=== PATIENT | male | born 1995 | race Caucasian/White ===

== ENCOUNTER 2020-06-13 15:14 | Emergency (ER) | payer SELFPAY ==
--- NOTE | 2020-06-13 16:28 | ER Document Report ---
ED Medical Screen (RME) - General Chief Complaint: Possible Overdose Stated Complaint: POSSIBLE OVERDOSE Time Seen by Provider: 06/13/20 16:26 Mode of Arrival: Medic Information source: Patient Notes: 25-year-old male presented to ED for complaint of possible overdose of oxycodone. He states he is not prescribed oxycodone and took 60 mg of oxycodone. He was on his way to [place] for rehab when he told the people to stop and bring him to the emergency room because he was feeling very lightheaded with his mouth tingling and feeling like he was going to pass out. He states he does frequently abuse heroin marijuana and mass. He states he is always binging on something. He states he was taken Suboxone but ran out of that 3 days ago so he took the oxycodone so that he would not withdrawal from the Suboxone. He states he has never taken 60 mg at one time before. He states he does smoke a pack and 1/2 to 2 packs/day he is a heavy drinker. He states he is always either binging on alcohol or drugs. I did notify the charge nurse and she stated that the EMS told her his vital signs were stable and that he had only taken 1 more oxycodone than he usually takes. Patient told me he does not usually take oxycodone. I have greeted and performed a rapid initial assessment of this patient. A comprehensive ED assessment and evaluation of the patient, analysis of test results and completion of medical decision making process will be conducted by an additional ED providers. - Related Data Allergies/Adverse Reactions: No Known Allergies Allergy (Unverified 06/13/20 16:17) Physical Exam - Vital signs Vitals: Temp Pulse Resp BP Pulse Ox 98.4 F 103 H 20 135/87 H 99 06/13/20 15:22 06/13/20 15:22 06/13/20 15:22 06/13/20 15:22 06/13/20 15:22 Course - Vital Signs Vital signs: Temp Pulse Resp BP Pulse Ox 98.4 F 103 H 20 135/87 H 99 06/13/20 15:22 06/13/20 15:22 06/13/20 15:22 06/13/20 15:22 06/13/20 15:22
[2020-06-13] MEDS ORDERED: NICOTINE 14 MG/24 HR PATCH.TD24 TD ONE (16:47)
[2020-06-13 16:52] LABS: APPEARANCE,URINE CLEAR; BILIRUBIN,URINE NEGATIVE (NEGATIVE); COLOR,URINE AMBER; GLUCOSE, URINE NEGATIVE (NEGATIVE); KETONES,URINE NEGATIVE (NEGATIVE); LEUKOCYTE ESTERASE,URINE NEGATIVE (NEGATIVE); NITRITE,URINE NEGATIVE (NEGATIVE); PROTEIN,URINE 30 mg/dL (NEGATIVE); URINE SPECIFIC GRAVITY 1.025
[2020-06-13 16:57] LABS: ABSOLUTE BASOPHILS # (AUTO) 0.1 10^3/uL (0.0-0.2); ABSOLUTE EOSINOPHILS # (AUTO) 0.1 10^3/uL (0.0-0.6); ABSOLUTE LYMPHOCYTES (AUTO) 2.5 10^3/uL (0.5-4.7); ABSOLUTE MONOCYTES (AUTO) 1.3 10^3/uL (0.1-1.4); ABSOLUTE NEUT (AUTO) 10.8 10^3/uL (1.7-8.2); BASOPHILS % (AUTO) 0.5 % (0-2); EOSINOPHILS % (AUTO) 0.8 % (0-6); HEMOGLOBIN 13.6 g/dL (13.5-17.0); LYMPHOCYTES % (AUTO) 16.8 % (13-45); MEAN CORPUSCULAR HGB CONC 35.8 g/dL (32.0-36.0); MEAN CORPUSCULAR VOLUME 89 fl (80-97); MONOCYTES % (AUTO) 8.7 % (3-13); PLATELET COUNT 221 10^3/uL (150-450); RED BLOOD COUNT 4.25 10^6/uL (4.35-5.55); RED CELL DISTRIBUTION WIDTH 14.5 % (11.5-14.0); SEGMENTED NEUTROPHILS % (AUTO) 73.2 % (42-78); TOTAL CELLS COUNTED % (AUTO) 100 %; WHITE BLOOD COUNT 14.8 10^3/uL (4.0-10.5)
[2020-06-13 17:11] LABS: URINE BARBITURATES SCREEN NEGATIVE; URINE BENZODIAZEPINES SCREEN NEGATIVE; URINE COCAINE SCREEN NEGATIVE; URINE MARIJUANA (THC) SCREEN NEGATIVE; URINE METHADONE SCREEN NEGATIVE; URINE PHENCYCLIDINE SCREEN NEGATIVE
[2020-06-13 17:15] LABS: ALBUMIN 4.6 g/dL (3.5-5.0); ALKALINE PHOSPHATASE 88 U/L (38-126); ANION GAP 8 (5-19); ASPARTATE AMINO TRANSFERASE 69 U/L (17-59); BILIRUBIN,TOTAL 2.5 mg/dL (0.2-1.3); BLOOD UREA NITROGEN 15 mg/dL (7-20); CALCIUM 9.1 mg/dL (8.4-10.2); CARBON DIOXIDE 29 mmol/L (22-30); CHLORIDE 96 mmol/L (98-107); GLUCOSE 79 mg/dL (75-110); POTASSIUM 3.8 mmol/L (3.6-5.0); TOTAL PROTEIN 7.8 g/dL (6.3-8.2)
[2020-06-13 17:17] LABS: ACETAMINOPHEN < 10 ug/mL (10-30); ALCOHOL < 10 mg/dL (NONE DETECTED); SALICYLATE < 1.0 mg/dL (2.0-20.0)
--- NOTE | 2020-06-13 17:33 | PSYCHOLOGICAL NOTE ---
Psych Note - Psych Note Date seen by psych provider: 06/13/20 Time seen by psych provider: 16:45 Psych Note: Patient reports he was on being transported to [facility] for voluntary detox. He reports that approximately 3 hours ago he used 60 mg of opiates. Behavioral health team was able to confirm that the [facility] is holding a bed for the patient upon medical clearance. Patient confirms he would like to finish up his treatment at [facility]. Patient is cleared from acute psychiatric services. Patient has a voluntary bed reserved at the [facility] for substance abuse detox. Upon discharge- PRIOR to transporting to [place]- please conduct a nurse to nurse with the [facility] [phone].
--- NOTE | 2020-06-13 18:21 | EKG REPORT ---
SEVERITY:- NORMAL ECG - SINUS RHYTHM : Confirmed by: Hoang Olivier MD 13-Jun-2020 18:21:02
--- NOTE | 2020-06-13 18:22 | ER Document Report ---
ED Substance Abuse / Acc. OD - General Chief Complaint: Possible Overdose Stated Complaint: POSSIBLE OVERDOSE Time Seen by Provider: 06/13/20 16:26 Mode of Arrival: Medic Information source: Patient Notes: 25-year-old male past medical history significant for hep C, alcohol abuse, drug abuse presents to the emergency room concerned about possible side effects and overdose of oxycodone. Patient states he was at [facility] earlier today with a panic attack. They called mobile crisis he was being transported to [facility] when he informed them that he had taken 60 mg of oxycodone about 4 hours prior to the transfer. Patient stated but off the street. States he first noted having some tingling in his lips, hands, felt dizzy, felt he had decreased mental capacity. States he has a history of previous drug abuse and overdose and felt symptoms to be similar. He denies any chest pain, shortness of breath, no difficulty breathing. Was brought to the emergency room to be cleared to make sure that he is medically clear to go to [facility]. He offers no other concerns or complaints. TRAVEL OUTSIDE OF THE [place] IN LAST 30 DAYS: No - Related Data Allergies/Adverse Reactions: No Known Allergies Allergy (Unverified 06/13/20 16:17) Home Medications: Suboxin, Seraquil, Ativan Past Medical History - General Information source: Patient - Social History Smoking Status: Current Every Day Smoker Frequency of alcohol use: Heavy Drug Abuse: Heroin, Marijuana, Prescription drugs Family History: Reviewed & Not Pertinent Review of Systems - Review of Systems Constitutional: No symptoms reported EENT: No symptoms reported Cardiovascular: No symptoms reported Respiratory: No symptoms reported Gastrointestinal: No symptoms reported Skin: No symptoms reported Neurological/Psychological: Anxiety, Weakness, Tingling, Other - "Decreased mental capacity". denies: Speech impairment -: Yes All other systems reviewed and negative Physical Exam - Vital signs Vitals: Temp Pulse Resp BP Pulse Ox 98.4 F 103 H 20 135/87 H 99 06/13/20 15:22 06/13/20 15:22 06/13/20 15:22 06/13/20 15:22 06/13/20 15:22 - General General appearance: Appears well, Alert In distress: None - HEENT Head: Normocephalic, Atraumatic Eyes: Normal Cornea: Normal Extraocular movements intact: Yes Pupils: PERRL Visual hartley normal: Yes Mouth/Lips: Normal Pharynx: Normal Neck: Normal - Respiratory Respiratory status: No respiratory distress Chest status: Nontender Breath sounds: Normal Chest palpation: Normal - Cardiovascular Rhythm: Tachycardia Heart sounds: Normal auscultation Murmur: No Friction rub: No Gallop: None auscultated - Abdominal Inspection: Normal Distension: No distension Bowel sounds: Normal Tenderness: Nontender Organomegaly: No organomegaly - Extremities General upper extremity: Normal inspection, Nontender, Normal color, Normal ROM, Normal temperature General lower extremity: Normal inspection, Nontender, Normal color, Normal ROM, Normal temperature, Normal weight bearing. No: Cristian's sign - Neurological Neuro grossly intact: Yes Cognition: Normal Orientation: AAOx4 [place] Coma Scale Eye Opening: Spontaneous [place] Coma Scale Verbal: Oriented [place] Coma Scale Motor: Obeys Commands [place] Coma Scale Total: 15 Speech: Normal Cranial nerves: Normal Cerebellar coordination: Normal Motor strength normal: LUE, RUE, LLE, RLE Additional motor exam normals: Equal acid tank liner Sensory: Normal Notes: Patient with no neurological deficits. Ambulatory with a steady gait - Psychological Associated symptoms: Normal affect, Normal mood. No: Depressed, Flat affect, Flight of ideas, Manic, Paranoid - Skin Skin Temperature: Warm Skin Moisture: Dry Skin Color: Normal Course - Re-evaluation Re-evalutation: 06/13/20 18:40 Patient is resting comfortably he has no acute distress at this time. Normal neurological exam. Ambulatory with a steady gait. All labs and EKG were revie wed. Patient with a slightly elevated WBCs however he denies any recent fevers, cough, shortness of breath, no known ill contacts. No recent travel. No known COVID-19 exposure. Case was staffed with ED MD Dr. Adames who agrees that patient is medically stable to be discharged to [facility]. 06/13/20 18:42 Patient was given strict return to the emergency room guidelines. Return for any new or worsening symptoms. All questions were answered. Patient verbalized understanding and agrees with plan of care. - Vital Signs Vital signs: Temp Pulse Resp BP Pulse Ox 98.1 F 97 18 133/75 H 100 06/13/20 18:55 06/13/20 18:55 06/13/20 18:55 06/13/20 18:55 06/13/20 18:55 - Laboratory Result Diagrams: 06/13/20 16:41 06/13/20 16:41 Laboratory results interpreted by me: 06/13/20 06/13/20 06/13/20 16:28 16:41 16:41 WBC 14.8 H RBC 4.25 L RDW 14.5 H Absolute Neuts (auto) 10.8 H Sodium 132.5 L Chloride 96 L Total Bilirubin 2.5 H AST 69 H ALT 63 H Urine Protein 30 H Urine Urobilinogen 2.0 H Salicylates < 1.0 L Acetaminophen < 10 L - EKG Interpretation by Ma EKG shows normal: Sinus rhythm Additional EKG results interpreted by me: 06/13/20 18:21 EKG was interpreted by ER physician Dr. Adames Discharge - Discharge Clinical Impression: Drug ingestion Condition: Stable Disposition: HOME, SELF-CARE Instructions: Narcotic Abuse ([facility]) Additional Instructions: Will be transported to [facility] for further evaluation and treatment.
[2020-06-13 18:56] VITALS: BP 133/75
== END 2020-06-13 18:56 | disposition home or self-care (01) ==
LOC: ER 15:14
DX: F11.10 Opioid abuse, uncomplicated (principal); F12.10 Cannabis abuse, uncomplicated; R53.1 Weakness; R20.2 Paresthesia of skin; F17.200 Nicotine dependence, unspecified, uncomplicated; F41.9 Anxiety disorder, unspecified; R00.0 Tachycardia, unspecified; D72.829 Elevated white blood cell count, unspecified; Z79.899 Other long term (current) drug therapy
CPT/HCPCS: 36415; 80053; 80307; 81001; 85025; 93005; 93010; 99285